=== PATIENT | female | born 1955 ===

== ENCOUNTER 2016-09-17 11:03 | Emergency (ER) | payer OTHER ==
[2016-09-17 11:03] VITALS: BMI 26.2
[2016-09-17 11:14] VITALS: TEMP 97.7; O2SAT 98
--- NOTE | 2016-09-17 11:54 | C.PDOC ---
History Of Present Illness Patient is a 60 y/o female, whose PMHx includes HTN, presents to the ED for evaluation of left buttock pain radiating down to lateral left leg down to the left foot for the past 3 weeks. Patient notes taking unknown dosage of Ibuprofen occasionally at night time. Notes that pain is worse with movement. Otherwise, denies any recent injury, trauma, extremity numbness/weakness, tingling sensation, saddle anesthesia, bladder or bowel dysfunction, fever, or any other associated symptoms at this time. Time Seen by Provider: 09/17/16 11:29 Chief Complaint (Nursing): Lower Extremity Problem/Injury History Per: Patient History/Exam Limitations: no limitations Onset/Duration Of Symptoms: Days (3 weeks) Current Symptoms Are (Timing): Still Present Recent travel outside of the [place]: No Additional History Per: Patient Past Medical History Reviewed: Historical Data, Nursing Documentation, Vital Signs Vital Signs: Last Vital Signs Temp 97.7 F 09/17/16 11:10 Pulse 84 09/17/16 11:10 Resp 20 09/17/16 11:10 BP 143/78 09/17/16 11:10 Pulse Ox 98 09/17/16 12:19 - Medical History PMH: Anxiety, Arthritis, HTN, Rheumatoid Arthritis Denies: Chronic Kidney Disease Family History: States: Unknown Family Hx - Social History Hx Alcohol Use: No Hx Substance Use: No - Immunization History Hx Tetanus Toxoid Vaccination: No Hx Influenza Vaccination: No Hx Pneumococcal Vaccination: No Review Of Systems Constitutional: Negative for: Fever, Chills Musculoskeletal: Positive for: Leg Pain (left buttock pain radiating down to left leg and foot) Neurological: Negative for: Weakness, Numbness Physical Exam - Physical Exam Appears: Non-toxic, No Acute Distress Skin: Normal Color, Warm, Dry Head: Atraumatic, Normacephalic Neck: Normal ROM, Supple Chest: Symmetrical, No Tenderness Cardiovascular: Rhythm Regular Respiratory: Normal Breath Sounds, No Rales, No Rhonchi, No Wheezing Gastrointestinal/Abdominal: Soft, No Tenderness Back: No CVA Tenderness, No Vertebral Tenderness, No Paraspinal Tenderness, Other (left sciatic notch tenderness) Extremity: Normal ROM, No Tenderness, No Calf Tenderness (no posterior calf tenderness), Capillary Refill (<2 sec.), No Deformity, No Swelling Extremity: Bilateral: Atraumatic, Normal Color And Temperature, Normal ROM, Pelvis-Stable Pulses: Left Dorsalis Pedis: Normal (+2), Right Dorsalis Pedis: Normal (+2) Neurological/Psych: Oriented x3, Normal Speech, Normal Cognition, Normal Motor, Normal Sensation ED Course And Treatment O2 Sat by Pulse Oximetry: 98 (on RA) Pulse Ox Interpretation: Normal Progress Note: Patient was given Motrin in the ER. On re-exam, patient reports improvement of symptoms. Medical Decision Making Medical Decision Making: pt to take nsaids in higher dose for few days; if no improvement, recommend to f /u pmd, and for pt. Disposition Counseled Patient/Family Regarding: Diagnosis, Need For Followup, Rx Given - Disposition Referrals: [facility] [Outside] Disposition: HOME/ ROUTINE Disposition Time: 12:08 Condition: IMPROVED Additional Instructions: Follow up with Primary care doctor in a few days. Call postpartum rn service if you have any trouble making an appointment. ; take medications (with food) as prescribed. Return to ER for nay worsening symptoms. Your doctor may suggest physical therapy. Prescriptions: Ibuprofen [Motrin] 600 mg PO TID #30 tab Instructions: Sciatica (ED) Forms: Gen Discharge Inst Bengali Print Language: ALBANIAN - Clinical Impression Clinical Impression: Sciatica of left side - PA / CERTIFIED CODER / Resident Statement MD/DO has reviewed & agrees with the documentation as recorded. - Scribe Statement The provider has reviewed the documentation as recorded by the Jeannieibgeorge Stokes All medical record entries made by the Jeannieibgeorge were at my direction and personally dictated by me. I have reviewed the chart and agree that the record accurately reflects my personal performance of the history, physical exam, medical decision making, and the department course for this patient. I have also personally directed, reviewed, and agree with the discharge instructions and disposition.
[2016-09-17 13:25] VITALS: BP 134/75; PULSE 81; RESP 18
== END 2016-09-17 13:20 | disposition home or self-care (01) ==
LOC: C.ER 11:03
DX: M54.32 Sciatica, left side (principal)

== ENCOUNTER 2017-09-01 08:07 | Emergency (ER) | payer MEDICAID, OTHER ==
[2017-09-01 08:07] VITALS: BMI 26.2
--- NOTE | 2017-09-01 08:49 | C.PDOC ---
History Of Present Illness 61 year old female presents to the emergency department with complaints of a productive cough with yellow sputum that has persisted for the past 6 weeks. Patient states that she has not seen a Doctor for her symptoms. Chief Complaint (Nursing): Cough, Cold, Congestion History Per: Patient Onset/Duration Of Symptoms: Other (6 weeks) Current Symptoms Are (Timing): Still Present Associated Symptoms: Productive Cough (yellow sputum) Past Medical History Reviewed: Historical Data, Nursing Documentation, Vital Signs Vital Signs: Last Vital Signs Temp 97.4 F L 09/01/17 10:06 Pulse 64 09/01/17 10:06 Resp 20 09/01/17 10:06 BP 154/82 H 09/01/17 10:06 Pulse Ox 99 09/01/17 10:06 - Medical History PMH: Anxiety, Arthritis, HTN, Rheumatoid Arthritis Denies: Chronic Kidney Disease Surgical History: No Surg Hx Family History: States: No Known Family Hx - Social History Hx Alcohol Use: No Hx Substance Use: No - Immunization History Hx Tetanus Toxoid Vaccination: No Hx Influenza Vaccination: No Hx Pneumococcal Vaccination: No Review Of Systems Except As Marked, All Systems Reviewed And Found Negative. Respiratory: Positive for: Cough (productive), Sputum (yellow) Physical Exam - Physical Exam Appears: Non-toxic, No Acute Distress Eye(s): bilateral: Normal Inspection Nose: Normal Oral Mucosa: Moist Throat: Normal Neck: Normal Cardiovascular: Rhythm Regular Respiratory: Normal Breath Sounds Gastrointestinal/Abdominal: Normal Exam, Soft, No Tenderness ED Course And Treatment O2 Sat by Pulse Oximetry: 100 (RA) Pulse Ox Interpretation: Normal - Radiology CXR: Interpreted by Me CXR Interpretation: Yes: No Acute Disease - Other Rad CXR X-Ray: Viewed By Me, Read By Radiologist Interpretation: Accession No. : [id number]. Patient Name / ID : EVELYN Rodas / [id number]. Exam Date : 09/01/2017 08:40:13 ( Approved ). Study Comment : Sex / Age : F / 61Y. Creator : [place] MD. Dictator : Television Engineer : Stacker Tender : Bay West MD. Approver2 : Report Date : 16:29:48. My Comment : . HISTORY: Productive cough. COMPARISON: Comparison made with chest radiograph dated 06/03/2016. TECHNIQUE: Chest PA and lateral. FINDINGS: LUNGS: The interstitial markings are increased and coarsened with scattered peribronchial cuffing changes. Findings may represent sequela of reactive/inflammatory airway disease or viral illness. PLEURA: No significant pleural effusion identified. No pneumothorax apparent. CARDIOVASCULAR: Normal. OSSEOUS STRUCTURES: No significant abnormalities. VISUALIZED UPPER ABDOMEN: Normal. OTHER FINDINGS: None. IMPRESSION: The interstitial markings are increased and coarsened with scattered peribronchial cuffing changes. Findings may represent sequela of reactive/inflammatory airway disease or viral illness. Progress Note: Plan: CXR Two-Views. Zithromax. Promethazine. Patient is stable to be d/c home with PMD follow up. Disposition - Disposition Referrals: Mily Dunn MD [Staff Provider] - Disposition: HOME/ ROUTINE Disposition Time: 09:53 Condition: STABLE Additional Instructions: Follow up with your PMD and [facility] within 1-2 days. Return to ED if feel worse. Prescriptions: Albuterol Sulfate [Proair Hfa] 1 puff IH Q6 PRN #1 inh PRN Reason: Cough Promethazine HCl/Codeine [Prometh-Codein 6.25-10 mg/5 ml] 5 ml PO .Q4-6H #150 ml Azithromycin [Zithromax] 250 mg PO DAILY #4 tab Instructions: Acute Bronchitis Forms: [employer] (Georgian) Print Language: TURKMEN - Clinical Impression Clinical Impression: Bronchitis - PA / VIRTUALIZATION ENGINEER / Resident Statement MD/DO has reviewed & agrees with the documentation as recorded. - Scribe Statement The provider has reviewed the documentation as recorded by the Scribe (Francesco Carvajal) All medical record entries made by the Scribe were at my direction and personally dictated by me. I have reviewed the chart and agree that the record accurately reflects my personal performance of the history, physical exam, medical decision making, and the department course for this patient. I have also personally directed, reviewed, and agree with the discharge instructions and disposition.
[2017-09-01] MEDS ORDERED: Promethazine/Cod 6.25mg-10mg/5ml Syr UD PO STA (09:51)
[2017-09-01] MEDS ORDERED: Promethazine DM 6.25 mg-15 mg/5 ml Syrup ONE (10:03)
[2017-09-01 10:06] VITALS: BP 154/82; PULSE 64; RESP 20; TEMP 97.4
--- NOTE | 2017-09-01 16:31 | RAD ---
HISTORY: Productive cough COMPARISON: Comparison made with chest radiograph dated 06/03/2016. TECHNIQUE: Chest PA and lateral FINDINGS: LUNGS: The interstitial markings are increased and coarsened with scattered peribronchial cuffing changes. Findings may represent sequela of reactive/inflammatory airway disease or viral illness. PLEURA: No significant pleural effusion identified. No pneumothorax apparent. CARDIOVASCULAR: Normal. OSSEOUS STRUCTURES: No significant abnormalities. VISUALIZED UPPER ABDOMEN: Normal. OTHER FINDINGS: None. IMPRESSION: The interstitial markings are increased and coarsened with scattered peribronchial cuffing changes. Findings may represent sequela of reactive/inflammatory airway disease or viral illness.
[2017-09-02 07:46] VITALS: O2SAT 100
== END 2017-09-01 10:13 | disposition home or self-care (01) ==
LOC: C.ER 08:07
DX: J40 Bronchitis, not specified as acute or chronic (principal)

== ENCOUNTER 2018-08-10 14:24 | Emergency (ER) | payer SELFPAY ==
[2018-08-10 14:24] VITALS: BMI 26.2
[2018-08-10 14:35] VITALS: BP 131/83; PULSE 74; RESP 20; TEMP 97.6; O2SAT 96
--- NOTE | 2018-08-10 15:41 | C.PDOC ---
History Of Present Illness 62 y/o female pt with hx of arthritis presents to the ER c/o right elbow and right knee pain s/p fall x20 days ago. Pt reports she did not want to go to the hospital due to the waiting time but decided to come today. Pt denies head trauma and LOC. Pt is able to ambulate with a steady gait. Time Seen by Provider: 08/10/18 14:41 Chief Complaint (Nursing): Upper Extremity Problem/Injury History Per: Patient History/Exam Limitations: no limitations Onset/Duration Of Symptoms: Days (x20) Current Symptoms Are (Timing): Still Present Past Medical History Reviewed: Historical Data, Nursing Documentation, Vital Signs Vital Signs: Last Vital Signs Temp 97.6 F 08/10/18 14:28 Pulse 74 08/10/18 14:28 Resp 20 08/10/18 14:28 BP 131/83 08/10/18 14:28 Pulse Ox 96 08/10/18 14:28 - Medical History PMH: Arthritis, HTN, Rheumatoid Arthritis Family History: States: No Known Family Hx - Social History Hx Alcohol Use: No Hx Substance Use: No - Immunization History Hx Tetanus Toxoid Vaccination: No Hx Influenza Vaccination: No Hx Pneumococcal Vaccination: No Review Of Systems Except As Marked, All Systems Reviewed And Found Negative. Constitutional: Negative for: Other (head trauma ) Musculoskeletal: Positive for: Other (right elbow pain and right knee pain ) Neurological: Negative for: Other (LOC) Physical Exam - Physical Exam Appears: Non-toxic, No Acute Distress Skin: Warm, Dry Head: Atraumatic, Normacephalic Eye(s): bilateral: Normal Inspection, PERRL, EOMI Oral Mucosa: Moist Throat: Normal Neck: Normal ROM, No Midline Cervical Tenderness, Supple Chest: Symmetrical, No Deformity Cardiovascular: Rhythm Regular Respiratory: Normal Breath Sounds Gastrointestinal/Abdominal: Soft, No Tenderness Extremity: Normal ROM (FROM of right elbow and right knee ), Tenderness (right elbow and right knee ) Neurological/Psych: Oriented x3, Normal Speech, Normal Cognition, Normal Motor, Normal Sensation, Other (neurovascular intact ) ED Course And Treatment O2 Sat by Pulse Oximetry: 96 (RA) Pulse Ox Interpretation: Normal - Other Rad R knee X-Ray: Read By Radiologist Interpretation: Accession No. : [id number]. Patient Name / ID : EVELYN Rodas / [id number]. Exam Date : 08/10/2018 15:04:22 ( Approved ). Study Comment : Sex / Age : F / 62Y. Creator : Yanni Desai MD. Dictator : Yanni Desai MD. Garland Machine Operator : Wood Panel Inspector : Yanni Desai MD. Approver2 : Report Date : 08/10/2018 15:52:35. My Comment : . Date of service: 08/10/2018. PROCEDURE: Right Knee Radiographs. HISTORY: r/o Fx. COMPARISON: None. TECHNIQUE: 2 views obtained. FINDINGS: BONES: Normal. No fracture. JOINTS: Normal. No osteoarthritis. JOINT EFFUSION: Suspicious for small joint effusion. OTHER FINDINGS: None. IMPRESSION: No evidence of acute fracture or dislocation. R elbow X-Ray: Read By Radiologist Interpretation: Accession No. : [id number]. Patient Name / ID : EVELYN Rodas / [id number]. Exam Date : 08/10/2018 15:04:13 ( Approved ). Study Comment : Sex / Age : F / 62Y. Creator : Yanni Desai MD. Dictator : Yanni Desai MD. Garland Machine Operator : Wood Panel Inspector : Yanni Desai MD. Approver2 : Report Date : 08/10/2018 15:45:03. My Comment : . Date of service: 08/10/2018. PROCEDURE: Radiographs of the right elbow. HISTORY: r/o Fx. COMPARISON: No prior. TECHNIQUE: 3 views obtained. FINDINGS: BONES: Normal. No fracture. JOINTS: Normal. No osteoarthritis. SOFT TISSUES: Normal. JOINT EFFUSION: None. OTHER FINDINGS: None. IMPRESSION: No evidence of acute fracture or dislocation. Medical Decision Making Medical Decision Making: Impression: 62 y/o female pt presents with right elbow nad right knee pain s/p fall x20 days ago; r/o elbow fx r/o knee fx Plans: -- right knee XR -- right elbow XR -- toradol Disposition - Disposition Referrals: [facility] [place] [Outside] [facility] [Outside] [facility] [Outside] Disposition: HOME/ ROUTINE Disposition Time: 16:04 Condition: GOOD Additional Instructions: Take motrin as directed and follow up with your pcp in a few days. Return to the ED if condition worsened. Prescriptions: Ibuprofen [Motrin] 600 mg PO Q6 #20 tab Instructions: Contusion (DC) Forms: [employer] (Tunisian) - Clinical Impression Clinical Impression: Contusion - Scribe Statement The provider has reviewed the documentation as recorded by the Scribe Sherman Do Provider Attestation: All medical record entries made by the Scribe were at my direction and personally dictated by me. I have reviewed the chart and agree that the record accurately reflects my personal performance of the history, physical exam, medical decision making, and the department course for this patient. I have also personally directed, reviewed, and agree with the discharge instructions and disposition.
--- NOTE | 2018-08-10 15:48 | RAD ---
Date of service: 08/10/2018 PROCEDURE: Radiographs of the right elbow. HISTORY: r/o Fx COMPARISON: No prior. TECHNIQUE: 3 views obtained. FINDINGS: BONES: Normal. No fracture. JOINTS: Normal. No osteoarthritis. SOFT TISSUES: Normal. JOINT EFFUSION: None. OTHER FINDINGS: None. IMPRESSION: No evidence of acute fracture or dislocation.
--- NOTE | 2018-08-10 15:56 | RAD ---
Date of service: 08/10/2018 PROCEDURE: Right Knee Radiographs. HISTORY: r/o Fx COMPARISON: None. TECHNIQUE: 2 views obtained. FINDINGS: BONES: Normal. No fracture. JOINTS: Normal. No osteoarthritis. JOINT EFFUSION: Suspicious for small joint effusion. OTHER FINDINGS: None. IMPRESSION: No evidence of acute fracture or dislocation.
== END 2018-08-10 16:05 | disposition home or self-care (01) ==
LOC: C.ER 14:24
DX: S50.01XA Contusion of right elbow, initial encounter (principal); S80.01XA Contusion of right knee, initial encounter; W19.XXXA Unspecified fall, initial encounter
CPT/HCPCS: 73080; 73562; 96372; 99283; J1885

== ENCOUNTER 2018-08-22 11:18 | Emergency (ER) | payer SELFPAY ==
[2018-08-22 11:24] VITALS: BMI 26.7
[2018-08-22 11:36] VITALS: O2SAT 100
[2018-08-22] MEDS ORDERED: Tetracaine 0.5% Ophth (OR ONLY) OD ONE (12:10)
[2018-08-22] MEDS ORDERED: Fluorescein 1 mg Ophthalmic Strip OD ONE (12:10)
--- NOTE | 2018-08-22 12:16 | C.PDOC ---
History Of Present Illness 62-year-old female presents to the ED for evaluation of pain and redness to her right eye for two days. Patient denies fever, chills, foreign body sensation, injuries, headache, visual changes, rashes. Time Seen by Provider: 08/22/18 11:42 Chief Complaint (Nursing): Eye Problem History Per: Patient History/Exam Limitations: no limitations Onset/Duration Of Symptoms: Days (2) Current Symptoms Are (Timing): Still Present Severity: Mild Quality: "Pain" Associated Symptoms: Pain, Other (redness). denies: Decreased Vision, FB Sensation Additional History Per: Patient Past Medical History Reviewed: Historical Data, Nursing Documentation, Vital Signs Vital Signs: Last Vital Signs Temp 98.3 F 08/22/18 11:23 Pulse 82 08/22/18 11:23 Resp 18 08/22/18 11:23 BP 143/84 08/22/18 11:23 Pulse Ox 100 08/22/18 11:23 - Medical History PMH: Arthritis, HTN Other PMH: osteoarthritis Surgical History: No Surg Hx Family History: States: No Known Family Hx - Social History Hx Alcohol Use: No Hx Substance Use: No - Immunization History Hx Tetanus Toxoid Vaccination: No Hx Influenza Vaccination: No Hx Pneumococcal Vaccination: No Review Of Systems Constitutional: Negative for: Fever, Chills Eyes: Positive for: Pain (right), Redness (right). Negative for: Vision Change, Conjunctivae Inflammation, Eyelid Inflammation Skin: Negative for: Rash Neurological: Negative for: Headache, Dizziness Physical Exam - Physical Exam Appears: Well, Non-toxic, No Acute Distress Skin: Normal Color, Warm, Dry, No Rash Head: Atraumatic, Normacephalic Eye(s): bilateral: PERRL, EOMI, right: Other (subconjunctival hemorrhage at the inferior/medial aspect of eye), left: Normal Inspection Oral Mucosa: Moist Neck: Supple Cardiovascular: Rhythm Regular Respiratory: Normal Breath Sounds, No Rales, No Rhonchi, No Wheezing Extremity: Normal ROM Neurological/Psych: Oriented x3, Normal Speech, Normal Cognition Gait: Steady ED Course And Treatment O2 Sat by Pulse Oximetry: 100 (on RA) Pulse Ox Interpretation: Normal Progress Note: Right eye examined with tetracaine, fluorescein stain under Wood's lamp - no FBs, no corneal abrasions/ulcers. Patient reports history of arthritis, but states she thinks it is osteoarthritis not RA. Patient given Rx for moisturizing eye drops and instructed to use motrin/tylenol for pain. Patient also instructed to follow up with ophthamology in 1-2 days. Patient understands she should return to ED if symptoms worsen. Disposition Counseled Patient/Family Regarding: Diagnosis, Need For Followup, Rx Given - Disposition Referrals: Blade Lama [Staff Provider] - Disposition: HOME/ ROUTINE Disposition Time: 12:45 Condition: STABLE Additional Instructions: FOLLOW UP WITH EYE DOCTOR IN 1-2 DAYS USE EYE DROPS INSTRUCTED RETURN TO EMERGENCY ROOM IF YOUR SYMPTOMS WORSEN SEGUIR CON [place] EN 1-2 AMIN UTILIZAR LAS GOTAS DE OJOS THOMAS SE IND[place] VUELVA A LA ROMAIN DE EMERGENCIA SI SHAYE SNTOMAS SE HACEN PEOR Prescriptions: Peg 400/Hypromellose/Glycerin [Eye Drop Tears 0.2%-0.2%-1% 15 ml] 1 drop OP TID #1 bottle Instructions: Subconjunctival Hemorrhage Forms: [employer] (Swiss) Print Language: ENGLISH - Clinical Impression Clinical Impression: Subconjunctival hemorrhage of right eye - Scribe Statement The provider has reviewed the documentation as recorded by the Scribe (Lois Stokes) Provider Attestation: All medical record entries made by the Scribe were at my direction and personally dictated by me. I have reviewed the chart and agree that the record accurately reflects my personal performance of the history, physical exam, medical decision making, and the department course for this patient. I have also personally directed, reviewed, and agree with the discharge instructions and disposition.
[2018-08-22] MEDS ORDERED: Fluorescein 1 mg Ophthalmic Strip ONE (12:41)
[2018-08-22] MEDS ORDERED: Tetracaine 0.5% Ophth (OR ONLY) ONE (12:41)
[2018-08-22 13:33] VITALS: BP 130/80; PULSE 80; RESP 20; TEMP 98
== END 2018-08-22 13:31 | disposition home or self-care (01) ==
LOC: C.ER 11:18
DX: H11.31 Conjunctival hemorrhage, right eye (principal)

== ENCOUNTER 2018-09-11 09:58 | Emergency (ER) | payer OTHER ==
[2018-09-11 09:58] VITALS: BMI 26.7
[2018-09-11 10:23] VITALS: BP 138/83; PULSE 73; RESP 18; TEMP 98; O2SAT 99
--- NOTE | 2018-09-11 10:27 | C.PDOC ---
History Of Present Illness The patient is a 62 year old female who sustained an accidental fall onto her left arm one month ago. Patient was evaluated and had a negative x-ray at the time. Patient presents to the ED today complaining of right elbow pain that has been persistent for 1.5 months. She describes her elbow pain as a throbbing sensation and denies radiation or worsening of the pain. Patient has not been able to follow up with her PMD due to insurance issues. Patient took Tylenol yesterday with some improvement. She presents to the ED today requesting results of imaging and evaluation of her persistent pain. Patient denies chest pain, shortness of breath, shoulder pain, neck pain, wrist pain, or neurovascular deficits. Time Seen by Provider: 09/11/18 10:15 Chief Complaint (Nursing): Upper Extremity Problem/Injury History Per: Patient History/Exam Limitations: no limitations Onset/Duration Of Symptoms: Persistent, Other (1.5 months ) Current Symptoms Are (Timing): Still Present Quality: "Pain" Additional History Per: Patient Past Medical History Reviewed: Historical Data, Nursing Documentation, Vital Signs Vital Signs: Last Vital Signs Temp 98 F 09/11/18 10:19 Pulse 73 09/11/18 10:19 Resp 18 09/11/18 10:19 BP 138/83 09/11/18 10:19 Pulse Ox 99 09/11/18 10:19 Primary Care Provider: Patito Farr - Medical History PMH: Arthritis, HTN, Rheumatoid Arthritis Denies: Anxiety, Chronic Kidney Disease Surgical History: No Surg Hx Family History: States: Unknown Family Hx - Social History Hx Alcohol Use: No Hx Substance Use: No - Immunization History Hx Tetanus Toxoid Vaccination: No Hx Influenza Vaccination: No Hx Pneumococcal Vaccination: No Review Of Systems Cardiovascular: Negative for: Chest Pain Respiratory: Negative for: Shortness of Breath Musculoskeletal: Positive for: Other ((+)right elbow pain, (-)wrist pain ). Negative for: Neck Pain, Shoulder Pain Neurological: Negative for: Weakness, Numbness Physical Exam - Physical Exam Appears: Well, Non-toxic, No Acute Distress Skin: Normal Color, Warm, Dry, No Ecchymosis Head: Atraumatic, Normacephalic Ear(s): Bilateral: Normal Nose: Normal Oral Mucosa: Moist Throat: Normal, No Erythema, No Exudate Neck: No Midline Cervical Tenderness, No Paracervical Tenderness, Supple, No Other (meningeal signs ) Chest: Symmetrical, No Deformity, No Tenderness Cardiovascular: Rhythm Regular, No Murmur Respiratory: Normal Breath Sounds, No Rales, No Rhonchi, No Wheezing Gastrointestinal/Abdominal: Soft, No Tenderness, No Guarding, No Rebound Back: Normal Inspection, No CVA Tenderness, No Vertebral Tenderness Extremity: Normal ROM, Tenderness (point tenderness to right elbow ), No Calf Tenderness, Capillary Refill (less than 2 seconds ), No Deformity, Other (no snuff box tenderness, no wrist tenderness, no shoulder tenderness. N/v intact in b/l UE) Pulses: Left Radial: Normal, Right Radial: Normal Neurological/Psych: Oriented x3, Normal Speech, Normal Cognition, Normal Motor, Normal Sensation Gait: Steady ED Course And Treatment O2 Sat by Pulse Oximetry: 99 (on RA) Pulse Ox Interpretation: Normal - Other Rad right elbow XR X-Ray: Viewed By Me, Read By Radiologist Interpretation: Date of service: 09/11/2018. PROCEDURE: Radiographs of the right elbow. HISTORY: r elbow pain s/p fall 1 month ago. COMPARISON: No prior. TECHNIQUE: 3 views obtained. FINDINGS: BONES: Normal. No fracture. JOINTS: Normal. No osteoarthritis. SOFT TISSUES: Normal. JOINT EFFUSION: None. OTHER FINDINGS: None. IMPRESSION: Unremarkable radiographs of the right elbow. Medical Decision Making Medical Decision Making: Impression: 62 year old female with right elbow pain Differential diagnoses include but are not limited to: * chronic pain Plan: * right elbow XR * Tylenol PO * reassess and disposition Progress: Right elbow XR ordered and reviewed. Tylenol PO given. imaging unremarkable remains n/v intact clear for d/c home with return indications and f/u pt agreeable to plan Disposition - Disposition Referrals: Manju Olivera MD [Staff Provider] - [facility]Outside] [facility] [Outside] Disposition: HOME/ ROUTINE Disposition Time: 11:49 Condition: STABLE Additional Instructions: DI RIVAS, thank you for letting us take care of you today. Your provider was Zbigniew Ellison and you were treated for ARM PAIN. The emergency medical care you received today was directed at your acute symptoms. If you were prescribed any medication, please fill it and take as directed. It may take several days for your symptoms to resolve. Return to the Emergency Department if your symptoms worsen, do not improve, or if you have any other problems. Please contact your doctor or call one of the physicians/clinics you have been referred to that are listed on the Patient Visit Information form that is included in your discharge packet. Bring any paperwork you were given at discharge with you along with any medications you are taking to your follow up visit. Our treatment cannot replace ongoing medical care by a primary care provider outside of the emergency department. Thank you for allowing the [facility] team to be part of your care today. If you had an X-Ray or CT scan: A Radiologist will review the ED reading if any change in treatment is needed we will contact you. If you had a blood, urine, or wound culture: It will take several days for the results, if any change in treatment is needed we will contact you. If you had an STI test: It will take 48 hours for the results. Please call after 1 week if you have not heard back. Instructions: Elbow Sprain (DC) Forms: Xtone (Occitan), Xtone (Kosovan) Print Language: DIVEHI - Clinical Impression Clinical Impression: Elbow pain - Scribe Statement The provider has reviewed the documentation as recorded by the Scribe (Lois Stokes) Provider Attestation: All medical record entries made by the Scribe were at my direction and personally dictated by me. I have reviewed the chart and agree that the record accurately reflects my personal performance of the history, physical exam, medical decision making, and the department course for this patient. I have also personally directed, reviewed, and agree with the discharge instructions and disposition.
--- NOTE | 2018-09-11 10:53 | RAD ---
Date of service: 09/11/2018 PROCEDURE: Radiographs of the right elbow. HISTORY: r elbow pain s/p fall 1 month ago COMPARISON: No prior. TECHNIQUE: 3 views obtained. FINDINGS: BONES: Normal. No fracture. JOINTS: Normal. No osteoarthritis. SOFT TISSUES: Normal. JOINT EFFUSION: None. OTHER FINDINGS: None. IMPRESSION: Unremarkable radiographs of the right elbow.
== END 2018-09-11 12:04 | disposition home or self-care (01) ==
LOC: C.ER 09:58
DX: M25.521 Pain in right elbow (principal)